=== PATIENT | male | born 1955 | race Hispanic/Latino ===

== ENCOUNTER 2019-04-27 15:05 | Inpatient (IN) | payer MEDICARE ==
[2019-04-27] MEDS ORDERED: DILAUDID IV PRN (15:16)
--- NOTE | 2019-04-27 17:18 | Vascular Lab Report ---
DUPLEX DOPPLER LOWER EXTREMITY VEINS, LEFT INDICATION / CLINICAL INFORMATION: lt.leg pain/redness; r/o dvt. TECHNIQUE: Duplex doppler imaging was performed through the veins of the left lower extremity using venous compr ession and other maneuvers. COMPARISON: None available. FINDINGS: COMMON FEMORAL VEIN: Negative. FEMORAL VEIN: Negative. POPLITEAL VEIN: Negative. CALF VEINS: Negative. ADDITIONAL FINDINGS: Small mildly complex fluid collection in the left popliteal fossa. IMPRESSION: 1. No sonographic evidence for DVT in the left lower extremity. 2. Small, complex popliteal fossa cyst versus collection. Findings could represent small hematoma. Signer Name: Cami Scott MD Signed: 04/27/2019 5:13 PM Workstation Name: [id number]
[2019-04-27 18:24] LABS: Basophils % (Auto) 0.7 % (0.0-1.8); Eosinophils # (Auto) 0.7 K/mm3 (0.0-0.4); Eosinophils % (Auto) 10.7 % (0.0-4.3); Hematocrit 40.5 % (35.5-45.6); Hemoglobin 12.8 gm/dl (11.8-15.2); Lymphocytes # (Auto) 1.4 K/mm3 (1.2-5.4); Lymphocytes % (Auto) 21.3 % (13.4-35.0); Mean Corpuscular HGB Conc 32 % (32-34); Mean Corpuscular Volume 80 fl (84-94); Monocytes # (Auto) 0.5 K/mm3 (0.0-0.8); Monocytes % (Auto) 8.5 % (0.0-7.3); Platelet Count 181 K/mm3 (140-440); Red Blood Count 5.08 M/mm3 (3.65-5.03); Red Cell Distribution Width 17.8 % (13.2-15.2)
[2019-04-27 18:49] LABS: Alanine Aminotransferase 9 units/L (7-56); Albumin 4.1 g/dL (3.9-5); BUN/Creatinine Ratio 20; Blood Urea Nitrogen 14 mg/dL (9-20); Calcium 9.2 mg/dL (8.4-10.2); Hemolysis Index 4
[2019-04-27 18:59] LABS: Erythrocyte Sedimentation Rate 4 mm/Hr (0-20)
--- NOTE | 2019-04-27 19:49 | History and Physical Report ---
History of Present Illness Date of examination: 04/27/19 Date of admission: 04/27/19 15:52 Chief complaint: L knee redness 3 days History of present illness: Patient admitted as direct admit from Dr Meyer office for redness of L knee 3 days.He is status post L TKA. post op was doing wekk.Dr Mata concerned about cellulitis odf L knee.He wanted IV Zosyn and IV Vancomycin No fever or chills. Past History Past Medical History: diabetes, hypertension, hyperlipidemia Past Surgical History: total knee replacement Social history: lives with family, full code Family history: hypertension Medications and Allergies Allergies Allergy/AdvReac Type Severity Reaction Status Date / Time No Known Allergies Allergy Unverified 04/27/19 15:08 Home Medications Medication Instructions Recorded Confirmed Last Taken Type Aspirin [Aspirin BABY CHEW TAB] 81 mg PO QPM 04/27/19 04/27/19 04/26/19 20:00 History Carvedilol [Coreg] 6.25 mg PO DAILY 04/27/19 04/27/19 04/27/19 10:00 History Citalopram [celeXA] 40 mg PO QDAY 04/27/19 04/27/19 04/27/19 History Clopidogrel [Plavix] 75 mg PO DAILY 04/27/19 04/27/19 04/27/19 10:00 History Empagliflozin/Metformin HCl 1,000 mg PO BID 04/27/19 04/27/19 04/27/19 09:00 History [Synjardy 12.5-1,000 mg Tablet] Insulin Glargine [Lantus VIAL] 28 units SQ QPM 04/27/19 04/27/19 04/26/19 20:00 History Lisinopril [Zestril] 5 mg PO QPM 04/27/19 04/27/19 04/26/19 20:00 History Meclizine [Antivert] 25 mg PO PRN PRN 04/27/19 04/27/19 Unknown History Multivitamin [Multiple Vitamins] 1 each PO DAILY 04/27/19 04/27/19 04/27/19 10:00 History [place]-3/Dha/Epa/Fish Oil [Fish Oil 1,200 mg PO BID 04/27/19 04/27/19 04/27/19 10:00 History 1,200 mg Softgel] Pantoprazole [Protonix TAB] 40 mg PO DAILY 04/27/19 04/27/19 04/27/19 10:00 History Pregabalin [Lyrica] 100 mg PO BID 04/27/19 04/27/19 04/27/19 10:00 History Repaglinide 2 mg PO QHS 04/27/19 04/27/19 04/26/19 17:00 History Rosuvastatin Calcium [Crestor] 40 mg PO HS 04/27/19 04/27/19 04/26/19 21:00 History oxyCODONE /ACETAMINOPHEN [Percocet 5 mg PO Q6HR PRN 04/27/19 04/27/19 04/27/19 09:00 History 5/325 mg] Active Meds: Active Medications Hydromorphone HCl (Dilaudid) 0.5 mg IV Q3H PRN PRN Reason: Pain , Severe (7-10) Sodium Chloride (Nacl 0.9% 1000 Ml) 1,000 mls @ 75 mls/hr IV DIRECT ANA Review of Systems All systems: negative Exam - Constitutional Vitals: Temp Pulse Resp BP Pulse Ox 98.0 F 85 19 131/68 95 04/27/19 19:25 04/27/19 19:25 04/27/19 19:25 04/27/19 19:25 04/27/19 19:25 General appearance: Present: no acute distress, well-nourished - EENT Eyes: Present: PERRL ENT: hearing intact, clear oral mucosa - Neck Neck: Present: supple, normal ROM - Respiratory Respiratory effort: normal Respiratory: bilateral: CTA - Cardiovascular Heart rate: 78 Rhythm: regular Heart Sounds: Present: S1 & S2. Absent: rub, click - Extremities Extremities: no ischemia, pulses intact, pulses symmetrical, No edema Extremity abnormal: erythema (L knee) Peripheral Pulses: within normal limits - Abdominal General gastrointestinal: Present: soft, non-tender, non-distended, normal bowel sounds Male genitourinary: Present: normal - Rectal Rectal Exam: deferred - Integumentary Integumentary: Present: clear, warm, dry - Musculoskeletal Musculoskeletal: gait normal, strength equal bilaterally - Psychiatric Psychiatric: appropriate mood/affect, intact judgment & insight - Neurologic Neurologic: CNII-XII intact, moves all extremities - Allied Health Allied health notes reviewed: nursing, case management Results - Labs CBC & Chem 7: 04/28/19 05:25 04/28/19 05:25 Labs: Laboratory Last Values WBC 6.5 K/mm3 (4.5-11.0) 04/27/19 17:55 RBC 5.08 M/mm3 (3.65-5.03) H 04/27/19 17:55 Hgb 12.8 gm/dl (11.8-15.2) 04/27/19 17:55 Hct 40.5 % (35.5-45.6) 04/27/19 17:55 MCV 80 fl (84-94) L 04/27/19 17:55 MCH 25 pg (28-32) L 04/27/19 17:55 MCHC 32 % (32-34) 04/27/19 17:55 RDW 17.8 % (13.2-15.2) H 04/27/19 17:55 Plt Count 181 K/mm3 (140-440) 04/27/19 17:55 Lymph % (Auto) 21.3 % (13.4-35.0) 04/27/19 17:55 [place] % (Auto) 8.5 % (0.0-7.3) H 04/27/19 17:55 Eos % (Auto) 10.7 % (0.0-4.3) H 04/27/19 17:55 Baso % (Auto) 0.7 % (0.0-1.8) 04/27/19 17:55 Lymph # 1.4 K/mm3 (1.2-5.4) 04/27/19 17:55 [place] # 0.5 K/mm3 (0.0-0.8) 04/27/19 17:55 Eos # 0.7 K/mm3 (0.0-0.4) H 04/27/19 17:55 Baso # 0.0 K/mm3 (0.0-0.1) 04/27/19 17:55 Seg Neutrophils % 58.8 % (40.0-70.0) 04/27/19 17:55 Seg Neutrophils # 3.8 K/mm3 (1.8-7.7) 04/27/19 17:55 ESR 4 mm/Hr (0-20) 04/27/19 17:55 Sodium 139 mmol/L (137-145) 04/27/19 17:55 Potassium 4.4 mmol/L (3.6-5.0) 04/27/19 17:55 Chloride 99.9 mmol/L (98-107) 04/27/19 17:55 Carbon Dioxide 26 mmol/L (22-30) 04/27/19 17:55 18 mmol/L 04/27/19 17:55 BUN 14 mg/dL (9-20) 04/27/19 17:55 0.7 mg/dL (0.8-1.5) L 04/27/19 17:55 Estimated GFR > 60 ml/min 04/27/19 17:55 20 % 04/27/19 17:55 Glucose 110 mg/dL (75-100) H 04/27/19 17:55 POC Glucose 118 (70-105) H 04/27/19 17:31 Calcium 9.2 mg/dL (8.4-10.2) 04/27/19 17:55 0.40 mg/dL (0.1-1.2) 04/27/19 17:55 AST 11 units/L (5-40) 04/27/19 17:55 ALT 9 units/L (7-56) 04/27/19 17:55 85 units/L (35-129) 04/27/19 17:55 0.60 mg/dL (0.00-1.30) 04/27/19 17:55 6.8 g/dL (6.3-8.2) 04/27/19 17:55 4.1 g/dL (3.9-5) 04/27/19 17:55 1.5 % 04/27/19 17:55 TSH 1.770 mlU/mL (0.270-4.200) 04/27/19 17:55 Short CBC 04/27/19 04/28/19 Range/Units 17:55 05:25 WBC 6.5 5.4 (4.5-11.0) K/mm3 Hgb 12.8 12.0 (11.8-15.2) gm/dl Hct 40.5 37.2 (35.5-45.6) % Plt Count 181 158 (140-440) K/mm3 BMP 04/27/19 04/28/19 17:55 05:25 Sodium 139 139 Potassium 4.4 4.4 Chloride 99.9 101.9 Carbon Dioxide 26 26 BUN 14 14 Creatinine 0.7 L 0.7 L Glucose 110 H 112 H Calcium 9.2 8.6 Liver Function 04/27/19 04/28/19 Range/Units 17:55 05:25 Total Bilirubin 0.40 0.50 (0.1-1.2) mg/dL AST 11 11 (5-40) units/L ALT 9 9 (7-56) units/L Alkaline Phosphatase 85 71 (35-129) units/L Albumin 4.1 3.5 L (3.9-5) g/dL Assessment and Plan Advance Directives: Yes (Full code) VTE prophylaxis?: Chemical Plan of care discussed with patient/family: Yes - Patient Problems (1) Cellulitis of knee, left Current Visit: Yes Status: Acute Plan to address problem: IV zosyn and IV Vancomycin as per Dr Wilfredo Lopez consulted (2) HTN (hypertension) Current Visit: Yes Status: Chronic Qualifiers: Hypertension type: essential hypertension Qualified Code(s): I10 - Essential (primary) hypertension Plan to address problem: Cont antihypertensives (3) T2DM (type 2 diabetes mellitus) Current Visit: Yes Status: Chronic Qualifiers: Diabetes mellitus terminal superintendent insulin use: without fpc use Plan to address problem: Cont Invokana and coverage (4) DVT prophylaxis Current Visit: Yes Status: Acute Plan to address problem: On Lovenox and GI prophylaxis
[2019-04-27] MEDS ORDERED: SODIUM CHLORIDE FLUSH SYRINGE 10 ML IV PRN (19:50)
[2019-04-27] MEDS ORDERED: TYLENOL PO PRN (19:50)
[2019-04-27] MEDS ORDERED: ZOFRAN IV PRN (19:50)
[2019-04-27] MEDS ORDERED: VANCOMYCIN PHARMACY TO DOSE IV SCH (20:00)
[2019-04-27] MEDS ORDERED: ZOSYN/NS 4.5GM/100ML 4.5 GM/100 ML VIAL IV SCH (20:30)
[2019-04-27] MEDS: PEPCID PO SCH (21:00)
[2019-04-27] MEDS: SODIUM CHLORIDE FLUSH SYRINGE 10 ML IV SCH (21:01)
[2019-04-27] MEDS: ZOSYN/NS 4.5GM/100ML 4.5 GM/100 ML VIAL IV SCH (21:47)
[2019-04-27] MEDS ORDERED: BABY ASPIRIN PO SCH (22:00)
[2019-04-27] MEDS ORDERED: VANCOMYCIN/NS 1 GM/250 ML 1 GM/250 ML BAG IV ONE (23:00)
[2019-04-27] MEDS: LANTUS SUB-Q SCH (23:02)
[2019-04-27] MEDS: PREGABALIN 25 MG, PREGABALIN 75 MG PO SCH (23:03)
[2019-04-27] MEDS: FISH OIL PO SCH (23:04)
[2019-04-27] MEDS: ZESTRIL PO SCH (23:07)
[2019-04-27] MEDS ORDERED: VANCOMYCIN 2,000 MG in NACL 0.9% 500 ML 500 ML IV ONE (23:15)
[2019-04-28 05:40] LABS: Basophils % (Auto) 0.8 % (0.0-1.8); Eosinophils # (Auto) 0.7 K/mm3 (0.0-0.4); Eosinophils % (Auto) 12.9 % (0.0-4.3); Hematocrit 37.2 % (35.5-45.6); Lymphocytes # (Auto) 1.5 K/mm3 (1.2-5.4); Lymphocytes % (Auto) 27.7 % (13.4-35.0); Mean Corpuscular HGB Conc 32 % (32-34); Mean Corpuscular Volume 80 fl (84-94); Monocytes # (Auto) 0.5 K/mm3 (0.0-0.8); Monocytes % (Auto) 9.6 % (0.0-7.3); Platelet Count 158 K/mm3 (140-440); Red Blood Count 4.65 M/mm3 (3.65-5.03); Red Cell Distribution Width 17.7 % (13.2-15.2)
[2019-04-28] MEDS: ZOSYN/NS 4.5GM/100ML 4.5 GM/100 ML VIAL IV SCH ×2 (05:40→14:47)
[2019-04-28 06:06] LABS: Alanine Aminotransferase 9 units/L (7-56); Albumin 3.5 g/dL (3.9-5); BUN/Creatinine Ratio 20; Blood Urea Nitrogen 14 mg/dL (9-20); Calcium 8.6 mg/dL (8.4-10.2); Hemolysis Index 6
[2019-04-28] MEDS ORDERED: PERCOCET 5/325 PO PRN (07:15)
[2019-04-28] MEDS ORDERED: ANTIVERT PO PRN (07:15)
--- NOTE | 2019-04-28 08:36 | Progress Note ---
Assessment and Plan Assessment and plan: Patient is a 64 yo man with a history of hypertension, IDDM type 2, Depression, 2 greenberg three years ago (placed on plavix with ASA), Vertigo, GERD and dyslipidemia who was a direct admit from Dr Meyer [facility] office for Left knee redness x 3 days. He is status post Left TKA on March 19, 2019 at [facility]. Patient was doing well post op. Dr Meyer was concerned about cellulitis the Left knee. He wanted IV Zosyn and IV Vancomycin. -Left knee cellulitis: treat with IV abx, consulted ID, wound culture done with Dr. Villalobos -s/p Left TKA: Ortho is following, -HTN (hypertension): Cont antihypertensives -T2DM (type 2 diabetes mellitus): Cont Invokana and coverage -DVT prophylaxis; per Dr. Villalobos, ok to stop sq lovenox and continue ASA and plavix History Interval history: Patient was seen and examined. Follow-up on current diagnosis of left knee cellulitis. No overnight events reported to me. Patient denies any chest pain, shortness breath, nausea/vomiting or severe headaches. Imaging, nursing note, chart, labs and old chart reviewed. Discussed with patient. Hospitalist Physical - Physical exam Narrative exam: Gen: WDWN, NAD, Awake, Alert, Orientated x 3 HEENT: NCAT, EOMI, PERRL, OP Clear Neck: supple, no adenopathy, no thyromegaly, no JVD CVS/Heart: RRR, normal S1S2, pulses present bilaterally Chest/Lungs: CTA B, Symmetrical chest expansion, good air entry bilaterally GI/Abdomen: soft, NTND, good bowel sounds, no guarding or rebound /Bladder: no suprapubic tenderness, no CVA or paraspinal tenderness Extermity/Skin: left knee s/p surgery with red, warmth, tender erythematous MSK: FROM x 4 Neuro: CN 2-12 grossly intact, no new focal deficits Psych: calm - Constitutional Vitals: Temp Pulse Resp BP Pulse Ox 98.1 F 76 20 148/69 96 04/28/19 07:21 04/28/19 07:21 04/28/19 07:21 04/28/19 07:21 04/28/19 07:21 General appearance: Present: no acute distress, well-nourished Results - Labs CBC & Chem 7: 04/28/19 05:25 04/28/19 05:25 Labs: Laboratory Last Values WBC 5.4 K/mm3 (4.5-11.0) 04/28/19 05:25 RBC 4.65 M/mm3 (3.65-5.03) 04/28/19 05:25 Hgb 12.0 gm/dl (11.8-15.2) 04/28/19 05:25 Hct 37.2 % (35.5-45.6) 04/28/19 05:25 MCV 80 fl (84-94) L 04/28/19 05:25 MCH 26 pg (28-32) L 04/28/19 05:25 MCHC 32 % (32-34) 04/28/19 05:25 RDW 17.7 % (13.2-15.2) H 04/28/19 05:25 Plt Count 158 K/mm3 (140-440) 04/28/19 05:25 Lymph % (Auto) 27.7 % (13.4-35.0) 04/28/19 05:25 [place] % (Auto) 9.6 % (0.0-7.3) H 04/28/19 05:25 Eos % (Auto) 12.9 % (0.0-4.3) H 04/28/19 05:25 Baso % (Auto) 0.8 % (0.0-1.8) 04/28/19 05:25 Lymph # 1.5 K/mm3 (1.2-5.4) 04/28/19 05:25 [place] # 0.5 K/mm3 (0.0-0.8) 04/28/19 05:25 Eos # 0.7 K/mm3 (0.0-0.4) H 04/28/19 05:25 Baso # 0.0 K/mm3 (0.0-0.1) 04/28/19 05:25 Seg Neutrophils % 49.0 % (40.0-70.0) 04/28/19 05:25 Seg Neutrophils # 2.6 K/mm3 (1.8-7.7) 04/28/19 05:25 ESR 4 mm/Hr (0-20) 04/27/19 17:55 Sodium 139 mmol/L (137-145) 04/28/19 05:25 Potassium 4.4 mmol/L (3.6-5.0) 04/28/19 05:25 Chloride 101.9 mmol/L (98-107) 04/28/19 05:25 Carbon Dioxide 26 mmol/L (22-30) 04/28/19 05:25 16 mmol/L 04/28/19 05:25 BUN 14 mg/dL (9-20) 04/28/19 05:25 0.7 mg/dL (0.8-1.5) L 04/28/19 05:25 Estimated GFR > 60 ml/min 04/28/19 05:25 20 % 04/28/19 05:25 Glucose 112 mg/dL (75-100) H 04/28/19 05:25 POC Glucose 101 (70-105) 04/28/19 07:31 6.3 % (4-6) H 04/27/19 Unknown Calcium 8.6 mg/dL (8.4-10.2) 04/28/19 05:25 0.50 mg/dL (0.1-1.2) 04/28/19 05:25 AST 11 units/L (5-40) 04/28/19 05:25 ALT 9 units/L (7-56) 04/28/19 05:25 71 units/L (35-129) 04/28/19 05:25 0.60 mg/dL (0.00-1.30) 04/27/19 17:55 6.1 g/dL (6.3-8.2) L 04/28/19 05:25 3.5 g/dL (3.9-5) L 04/28/19 05:25 1.3 % 04/28/19 05:25 TSH 1.770 mlU/mL (0.270-4.200) 04/27/19 17:55 Active Medications - Current Medications Current Medications: Generic Name Dose Route Start Last Admin Trade Name Freq PRN Reason Stop Dose Admin Acetaminophen 650 mg 04/27/19 19:50 Tylenol PO Q4H PRN Pain MILD(1-3)/Fever >100.5/QU[place]A Aspirin 81 mg 04/28/19 18:00 Baby Aspirin PO QPM ANA Atorvastatin Calcium 80 mg 04/27/19 22:00 04/27/19 23:06 Lipitor PO 80 mg QHS [facility] Administration Carvedilol 6.25 mg 04/28/19 10:00 Coreg PO DAILY [facility] Citalopram Hydrobromide 40 mg 04/28/19 10:00 Celexa PO QDAY [facility] Clopidogrel Bisulfate 75 mg 04/28/19 10:00 Plavix PO QDAY [facility] Enoxaparin Sodium 40 mg 04/28/19 22:00 Lovenox SUB-Q QDAY@2200 [facility] Famotidine 20 mg 04/27/19 22:00 04/27/19 21:00 Pepcid PO 20 mg BID ANA Administration Fish Oil 1,200 mg 04/27/19 22:00 04/27/19 23:04 Fish Oil PO 1,200 mg BID [facility] Administration Hydromorphone HCl 0.5 mg 04/27/19 15:16 04/27/19 23:08 Dilaudid IV 0.5 mg Q3H PRN Administration Pain , Severe (7-10) Sodium Chloride 1,000 mls @ 75 mls/hr 04/27/19 16:00 Nacl 0.9% 1000 Ml IV DIRECT [facility] Piperacillin Sod/Tazobactam Sod 4.5 gm in 100 mls @ 200 mls/hr 04/27/19 22:00 04/28/19 05:40 Zosyn/Ns 4.5gm/100ml IV 200 mls/hr Q8HR [facility] Administration Protocol Vancomycin HCl 1,750 mg/ 535 mls @ 333.333 mls/hr 04/28/19 12:00 Sodium Chloride IV Q12H [facility] Insulin Glargine 28 units 04/27/19 22:00 04/27/19 23:02 Lantus SUB-Q Not Given QHS [facility] Lisinopril 5 mg 04/27/19 22:00 04/27/19 23:07 Zestril PO 5 mg QHS [facility] Administration Meclizine HCl 25 mg 04/28/19 07:15 Antivert PO PRN PRN dizziness Miscellaneous Medication 1,000 mg 04/28/19 10:00 Empagliflozin/Metformin Hcl [Synjardy 12.5-1,000 Mg Tablet] PO BID [facility] Multivitamins/Minerals 1 each 04/28/19 10:00 Theragran-M Tab PO QDAY ANA Ondansetron HCl 4 mg 04/27/19 19:50 Zofran IV Q8H PRN Nausea And Vomiting Oxycodone/Acetaminophen 1 tab 04/27/19 19:50 Percocet 5/325 PO Q6H PRN Pain, Moderate (4-6) Pantoprazole Sodium 40 mg 04/28/19 10:00 Protonix PO QDAY ANA Pregabalin 25 mg/ Pregabalin 100 mg 04/27/19 22:00 04/27/19 23:03 75 mg PO 100 mg BID ANA Administration Repaglinide 2 mg 04/28/19 17:00 Prandin PO QHS ANA Sodium Chloride 10 ml 04/27/19 22:00 04/27/19 21:01 Sodium Chloride Flush Syringe 10 Ml IV 10 ml BID ANA Administration Sodium Chloride 10 ml 04/27/19 19:50 Sodium Chloride Flush Syringe 10 Ml IV PRN PRN LINE FLUSH
[2019-04-28] MEDS: PEPCID PO SCH ×2 (09:11→22:25)
[2019-04-28] MEDS: PLAVIX PO SCH (09:11)
[2019-04-28] MEDS: PROTONIX PO SCH (09:12)
[2019-04-28] MEDS: FISH OIL PO SCH ×4 (09:12→22:25)
[2019-04-28] MEDS: celeXA PO SCH (09:12)
[2019-04-28] MEDS: COREG PO SCH (09:12)
[2019-04-28] MEDS: THERAGRAN-M Tab PO SCH (09:12)
[2019-04-28] MEDS: PERCOCET 5/325 PO PRN ×2 (09:29→22:26)
[2019-04-28] MEDS: SODIUM CHLORIDE FLUSH SYRINGE 10 ML IV SCH (09:35)
[2019-04-28] MEDS ORDERED: NON-FORMULARY (Pregabalin [Lyrica] 100 MG) PO SCH (10:00)
[2019-04-28] MEDS ORDERED: PLAVIX PO SCH (10:00)
[2019-04-28] MEDS ORDERED: FISH OIL PO SCH (10:00)
[2019-04-28] MEDS ORDERED: METFORMIN HCL PO SCH (10:00)
[2019-04-28] MEDS ORDERED: NON-FORMULARY (Multivitamin [Multiple Vitamins] 1 EACH) PO SCH (10:00)
[2019-04-28] MEDS ORDERED: EPA PO SCH (10:00)
[2019-04-28] MEDS ORDERED: PROTONIX PO SCH (10:00)
[2019-04-28] MEDS ORDERED: OMEGA PO SCH (10:00)
[2019-04-28] MEDS ORDERED: COREG PO SCH (10:00)
[2019-04-28] MEDS ORDERED: celeXA PO SCH (10:00)
[2019-04-28] MEDS ORDERED: DHA PO SCH (10:00)
[2019-04-28] MEDS ORDERED: EMPAGLIFLOZIN PO SCH (10:00)
--- NOTE | 2019-04-28 11:52 | Progress Note ---
Subjective Date of service: 04/28/19 Interval history: patient lying on bed comfortably. Redness a lot better. minimal redness in proximal medial tibia remaning with mild tenderness. Recomm- Ice pacs ELEVATION esr crp not resulted yet Cx from knee joint awaited. COntinue IV ABX. ID consult Objective Vital signs: Vital Signs - 12hr 04/28/19 04/28/19 04/28/19 04:09 04:11 07:21 Temperature 97.9 F 98.1 F Pulse Rate 78 76 Respiratory 18 18 20 Rate Blood Pressure 120/76 148/69 O2 Sat by Pulse 96 96 Oximetry 04/28/19 04/28/19 10:29 11:06 Temperature 97.0 F L Pulse Rate 76 Respiratory 18 18 Rate Blood Pressure 145/79 O2 Sat by Pulse 94 Oximetry - Labs CBC & BMP: 04/28/19 05:25 04/28/19 05:25 Labs: Abnormal lab results 04/27/19 04/27/19 04/27/19 Range/Units 17:31 17:55 17:55 RBC 5.08 H (3.65-5.03) M/mm3 MCV 80 L (84-94) fl MCH 25 L (28-32) pg RDW 17.8 H (13.2-15.2) % [place] % (Auto) 8.5 H (0.0-7.3) % Eos % (Auto) 10.7 H (0.0-4.3) % Eos # 0.7 H (0.0-0.4) K/mm3 Creatinine 0.7 L (0.8-1.5) mg/dL Glucose 110 H (75-100) mg/dL POC Glucose 118 H (70-105) Hemoglobin A1c (4-6) % Total Protein (6.3-8.2) g/dL Albumin (3.9-5) g/dL 04/27/19 04/28/19 04/28/19 Range/Units Unknown 05:25 05:25 RBC (3.65-5.03) M/mm3 MCV 80 L (84-94) fl MCH 26 L (28-32) pg RDW 17.7 H (13.2-15.2) % [place] % (Auto) 9.6 H (0.0-7.3) % Eos % (Auto) 12.9 H (0.0-4.3) % Eos # 0.7 H (0.0-0.4) K/mm3 Creatinine 0.7 L (0.8-1.5) mg/dL Glucose 112 H (75-100) mg/dL POC Glucose (70-105) Hemoglobin A1c 6.3 H (4-6) % Total Protein 6.1 L (6.3-8.2) g/dL Albumin 3.5 L (3.9-5) g/dL 04/28/19 Range/Units 11:16 RBC (3.65-5.03) M/mm3 MCV (84-94) fl MCH (28-32) pg RDW (13.2-15.2) % [place] % (Auto) (0.0-7.3) % Eos % (Auto) (0.0-4.3) % Eos # (0.0-0.4) K/mm3 Creatinine (0.8-1.5) mg/dL Glucose (75-100) mg/dL POC Glucose 113 H (70-105) Hemoglobin A1c (4-6) % Total Protein (6.3-8.2) g/dL Albumin (3.9-5) g/dL
[2019-04-28] MEDS: VANCOMYCIN 1,750 MG in NACL 0.9% 500 ML 500 ML IV SCH ×2 (12:17→23:46)
[2019-04-28] MEDS: PREGABALIN 25 MG, PREGABALIN 75 MG PO SCH ×2 (12:17→22:18)
--- NOTE | 2019-04-28 14:38 | Consultation ---
History of Present Illness - Reason for Consult Consult date: 04/28/19 abx recommendation for left TKA and cellulitis Requesting physician: CASSIE JENKINS - History of Present Illness The patient is a 64-year-old male with diabetes mellitus, hypertension, prior CVA, gastroesophageal reflux disease was admitted to the hospital yesterday from orthopedic clinic due to complaints of left knee redness. The patient initially underwent a left TKA on 03/19/2019. Postoperatively, he was doing well with good healing of the wound. He has been following up with physical therapy and increasing his exertion. 2 days ago, he noticed a mild redness close to the distal area of his incision, this worsened yesterday and hence he presented to the orthopedic clinic and was admitted for IV antibiotics. He states that he also underwent an arthrocentesis in the orthopedic clinic. Twice he denies any other systemic complaints. Review of Systems: General: no fevers,chills or rigors HEENT: no new visual disturbance Respiratory: No cough, sputum, hemoptysis or shortness of breath Cardiovascular: No chest pain, syncope Gastrointestinal: No nausea, vomiting or diarrhea Genitourinary: No dysuria or hematuria Musculoskeletal: No new or worsening neck pain or back pain Neurologic: No headaches, seizures Hematologic: No easy bruising or bleeding Endocrine: No night sweats or acute weight loss Skin: negative for rash, jaundice Psychiatric: No suicidal or homicidal ideation Past History Past Medical History: diabetes, hypertension, hyperlipidemia Past Surgical History: total knee replacement Social history: lives with family, full code Family history: hypertension Medications and Allergies Allergies Allergy/AdvReac Type Severity Reaction Status Date / Time No Known Allergies Allergy Unverified 04/27/19 15:08 Home Medications Medication Instructions Recorded Confirmed Last Taken Type Aspirin [Aspirin BABY CHEW TAB] 81 mg PO QPM 04/27/19 04/27/19 04/26/19 20:00 History Carvedilol [Coreg] 6.25 mg PO DAILY 04/27/19 04/27/19 04/27/19 10:00 History Citalopram [celeXA] 40 mg PO QDAY 04/27/19 04/27/19 04/27/19 History Clopidogrel [Plavix] 75 mg PO DAILY 04/27/19 04/27/19 04/27/19 10:00 History Empagliflozin/Metformin HCl 1,000 mg PO BID 04/27/19 04/27/19 04/27/19 09:00 History [Synjardy 12.5-1,000 mg Tablet] Insulin Glargine [Lantus VIAL] 28 units SQ QPM 04/27/19 04/27/19 04/26/19 20:00 History Lisinopril [Zestril] 5 mg PO QPM 04/27/19 04/27/19 04/26/19 20:00 History Meclizine [Antivert] 25 mg PO PRN PRN 04/27/19 04/27/19 Unknown History Multivitamin [Multiple Vitamins] 1 each PO DAILY 04/27/19 04/27/19 04/27/19 10:00 History Custer-3/Dha/Epa/Fish Oil [Fish Oil 1,200 mg PO BID 04/27/19 04/27/19 04/27/19 10:00 History 1,200 mg Softgel] Pantoprazole [Protonix TAB] 40 mg PO DAILY 04/27/19 04/27/19 04/27/19 10:00 History Pregabalin [Lyrica] 100 mg PO BID 04/27/19 04/27/19 04/27/19 10:00 History Repaglinide 2 mg PO QHS 04/27/19 04/27/19 04/26/19 17:00 History Rosuvastatin Calcium [Crestor] 40 mg PO HS 04/27/19 04/27/19 04/26/19 21:00 History oxyCODONE /ACETAMINOPHEN [Percocet 5 mg PO Q6HR PRN 04/27/19 04/27/19 04/27/19 09:00 History 5/325 mg] Active Meds: Active Medications Acetaminophen (Tylenol) 650 mg PO Q4H PRN PRN Reason: Pain MILD(1-3)/Fever >100.5/QUINTANILLA Aspirin (Baby Aspirin) 81 mg PO QPM [facility] Atorvastatin Calcium (Lipitor) 80 mg PO QHS [facility] Last Admin: 04/27/19 23:06 Dose: 80 mg Documented by: Carvedilol (Coreg) 6.25 mg PO DAILY [facility] Last Admin: 04/28/19 09:12 Dose: 6.25 mg Documented by: Citalopram Hydrobromide (Celexa) 40 mg PO QDAY [facility] Last Admin: 04/28/19 09:12 Dose: 40 mg Documented by: Clopidogrel Bisulfate (Plavix) 75 mg PO QDAY [facility] Last Admin: 04/28/19 09:11 Dose: 75 mg Documented by: Famotidine (Pepcid) 20 mg PO BID [facility] Last Admin: 04/28/19 09:11 Dose: 20 mg Documented by: Fish Oil (Fish Oil) 1,000 mg PO BID [facility] Last Admin: 04/28/19 10:25 Dose: Not Given Documented by: Hydromorphone HCl (Dilaudid) 0.5 mg IV Q3H PRN PRN Reason: Pain , Severe (7-10) Last Admin: 04/27/19 23:08 Dose: 0.5 mg Documented by: Sodium Chloride (Nacl 0.9% 1000 Ml) 1,000 mls @ 75 mls/hr IV DIRECT [facility] Piperacillin Sod/Tazobactam Sod (Zosyn/Ns 4.5gm/100ml) 4.5 gm in 100 mls @ 200 mls/hr IV Q8HR [facility]; Protocol Last Admin: 04/28/19 05:40 Dose: 200 mls/hr Documented by: Vancomycin HCl 1,750 mg/ (Sodium Chloride) 535 mls @ 333.333 mls/hr IV Q12H [facility] Last Admin: 04/28/19 12:17 Dose: 333.333 mls/hr Documented by: Insulin Glargine (Lantus) 28 units SUB-Q QHS [facility] Last Admin: 04/27/19 23:02 Dose: Not Given Documented by: Lisinopril (Zestril) 5 mg PO QHS [facility] Last Admin: 04/27/19 23:07 Dose: 5 mg Documented by: Meclizine HCl (Antivert) 25 mg PO PRN PRN PRN Reason: dizziness Miscellaneous Medication (Empagliflozin/Metformin Hcl [Synjardy 12.5-1,000 Mg Tablet]) 1,000 mg PO BID [facility] Multivitamins/Minerals (Theragran-M Tab) 1 each PO QDAY [facility] Last Admin: 04/28/19 09:12 Dose: 1 each Documented by: Ondansetron HCl (Zofran) 4 mg IV Q8H PRN PRN Reason: Nausea And Vomiting Oxycodone/Acetaminophen (Percocet 5/325) 1 tab PO Q6H PRN PRN Reason: Pain, Moderate (4-6) Last Admin: 04/28/19 09:29 Dose: 1 tab Documented by: Pantoprazole Sodium (Protonix) 40 mg PO QDAY [facility] Last Admin: 04/28/19 09:12 Dose: 40 mg Documented by: Pregabalin 25 mg/ Pregabalin (75 mg) 100 mg PO BID [facility] Last Admin: 04/28/19 12:17 Dose: 75 mg Documented by: Repaglinide (Prandin) 2 mg PO QHS [facility] Sodium Chloride (Sodium Chloride Flush Syringe 10 Ml) 10 ml IV BID [facility] Last Admin: 04/28/19 09:35 Dose: 10 ml Documented by: Sodium Chloride (Sodium Chloride Flush Syringe 10 Ml) 10 ml IV PRN PRN PRN Reason: LINE FLUSH Physical Examination - Physical Exam Narrative exam: Physical Exam: Constitutional: Alert, cooperative. No acute distress Head, Ears, Nose: Normocephalic, atraumatic. External ears, nose normal Eyes: Conjunctivae/corneas clear. No icterus. No ptosis. Neck: Supple, no meningeal signs Oral: dentition fair, no thrush Cardiovascular: S1, S2 normal. Respiratory: Good air entry, clear to auscultation bilaterally GI: Soft, non-tender; bowel sounds normal. No peritoneal signs Musculoskeletal: The surgical incision is clean, dry and intact with no open areas or drainage. Area of erythema and tenderness medial to the distal part of the knee incision is present, no fluctuation, no open area or drainage. No pedal edema, no cyanosis. Skin: No rash or abscess Hem/Lymphatic: No palpable cervical or supraclavicular nodes. No lymphangitis Psych: Mood ok. Affect normal Neurological: Awake, alert, oriented. No gross abnormality - Constitutional Vitals: Vital Signs Temp Pulse Resp BP Pulse Ox 97.0 F L 76 18 145/79 94 04/28/19 11:06 04/28/19 11:06 04/28/19 11:06 04/28/19 11:06 04/28/19 11:06 Temperature -Last 24 Hours Temperature 97.0 F Temperature 98.1 F Temperature 97.9 F Temperature 98.3 F Temperature 98.1 F Temperature 98.0 F Temperature 98.2 F Results - Labs CBC & Chem 7: 04/28/19 05:25 04/28/19 05:25 Labs: Abnormal lab results 04/27/19 04/27/19 04/27/19 Range/Units 17:31 17:55 17:55 RBC 5.08 H (3.65-5.03) M/mm3 MCV 80 L (84-94) fl MCH 25 L (28-32) pg RDW 17.8 H (13.2-15.2) % [place] % (Auto) 8.5 H (0.0-7.3) % Eos % (Auto) 10.7 H (0.0-4.3) % Eos # 0.7 H (0.0-0.4) K/mm3 Creatinine 0.7 L (0.8-1.5) mg/dL Glucose 110 H (75-100) mg/dL POC Glucose 118 H (70-105) Hemoglobin A1c (4-6) % Total Protein (6.3-8.2) g/dL Albumin (3.9-5) g/dL 04/27/19 04/28/19 04/28/19 Range/Units Unknown 05:25 05:25 RBC (3.65-5.03) M/mm3 MCV 80 L (84-94) fl MCH 26 L (28-32) pg RDW 17.7 H (13.2-15.2) % [place] % (Auto) 9.6 H (0.0-7.3) % Eos % (Auto) 12.9 H (0.0-4.3) % Eos # 0.7 H (0.0-0.4) K/mm3 Creatinine 0.7 L (0.8-1.5) mg/dL Glucose 112 H (75-100) mg/dL POC Glucose (70-105) Hemoglobin A1c 6.3 H (4-6) % Total Protein 6.1 L (6.3-8.2) g/dL Albumin 3.5 L (3.9-5) g/dL 04/28/19 Range/Units 11:16 RBC (3.65-5.03) M/mm3 MCV (84-94) fl MCH (28-32) pg RDW (13.2-15.2) % [place] % (Auto) (0.0-7.3) % Eos % (Auto) (0.0-4.3) % Eos # (0.0-0.4) K/mm3 Creatinine (0.8-1.5) mg/dL Glucose (75-100) mg/dL POC Glucose 113 H (70-105) Hemoglobin A1c (4-6) % Total Protein (6.3-8.2) g/dL Albumin (3.9-5) g/dL Assessment and Plan Cultures: 04/28/2019 synovial fluid culture: In process A/P: 64-year-old male with diabetes mellitus, hypertension, prior CVA, gastroeso phageal reflux disease admitted with: 1) Left knee cellulitis: clinically, the surgical incision is healing well and there is no concern for an underlying prosthetic joint infection. Seems to be responding well to abx. Follow up synovial fluid cultures. Gram negative source is unlikely, Zosyn not needed. Continue IV Vancomycin. 2) Left TKA: incision well healed. No drainage. Orthopedics following. 3) DM-2: recommend tight glycemic control. Recs: Discontinue Zosyn Continue IV vancomycin, target trough between 10-20 g per mL Follow up synovial fluid cultures For discharge, unable to use PO linezolid due to interaction with Citalopram. Will try to get him approved for one dose of IV Dalvance (that way he can avoid a PICC line) Pancho Linton MD, FACP [facility] ([facility]) C: [phone] O: [phone] F: [phone]
[2019-04-28 15:34] LABS: Total Cells Counted 100 /mm3
[2019-04-28] MEDS: NACL 0.9% 1000 ML 1,000 ML IV SCH (16:42)
[2019-04-28] MEDS ORDERED: PRANDIN PO SCH (17:00)
[2019-04-28] MEDS: BABY ASPIRIN PO SCH (17:15)
[2019-04-28] MEDS: PRANDIN PO SCH (17:15)
[2019-04-28] MEDS ORDERED: LANTUS SUB-Q SCH (18:00)
[2019-04-28] MEDS ORDERED: ZESTRIL PO SCH (18:00)
[2019-04-28] MEDS ORDERED: NON-FORMULARY (Rosuvastatin Calcium [Crestor] 40 MG) PO SCH (22:00)
[2019-04-28] MEDS ORDERED: REPAGLINIDE 2 MG PO SCH (22:00)
[2019-04-28] MEDS ORDERED: LOVENOX SUB-Q SCH (22:00)
[2019-04-28] MEDS: ZESTRIL PO SCH (22:26)
[2019-04-29] MEDS: NACL 0.9% 1000 ML 1,000 ML IV SCH (08:25)
[2019-04-29] MEDS: FISH OIL PO SCH ×2 (10:56→21:42)
[2019-04-29] MEDS: THERAGRAN-M Tab PO SCH (10:56)
[2019-04-29] MEDS: NON-FORMULARY PO SCH ×2 (10:56→21:42)
[2019-04-29] MEDS: PROTONIX PO SCH (10:57)
[2019-04-29] MEDS: celeXA PO SCH (10:57)
[2019-04-29] MEDS: PLAVIX PO SCH (10:57)
[2019-04-29] MEDS: COREG PO SCH (10:57)
[2019-04-29] MEDS: PEPCID PO SCH ×2 (10:57→21:41)
--- NOTE | 2019-04-29 11:17 | Progress Note ---
Assessment and Plan Assessment and plan: Patient is a 64 yo man with a history of hypertension, IDDM type 2, Depression, 2 greenberg three years ago (placed on plavix with ASA), Vertigo, GERD and dyslipidemia who was a direct admit from Dr Meyer Orthpop[facility] office for Left knee redness x 3 days. He is status post Left TKA on March 19, 2019 at [facility]. Patient was doing well post op. Dr Meyer was concerned about cellulitis the Left knee. He wanted IV Zosyn and IV Vancomycin. -Left knee cellulitis: treat with IV abx, consulted ID, wound culture done with Dr. Villalobos -s/p Left TKA: Ortho is following, -HTN (hypertension): Cont antihypertensives -T2DM (type 2 diabetes mellitus): Cont Invokana and coverage -DVT prophylaxis; per Dr. Villalobos, ok to stop sq lovenox and continue ASA and plavix History Interval history: Patient was seen and examined. Follow-up on current diagnosis of left knee cellulitis. No overnight events reported to me. Patient denies any chest pain, shortness breath, nausea/vomiting or severe headaches. Imaging, nursing note, chart, labs and old chart reviewed. Discussed with patient. Hospitalist Physical - Physical exam Narrative exam: Gen: WDWN, NAD, Awake, Alert, Orientated x 3 HEENT: NCAT, EOMI, PERRL, OP Clear Neck: supple, no adenopathy, no thyromegaly, no JVD CVS/Heart: RRR, normal S1S2, pulses present bilaterally Chest/Lungs: CTA B, Symmetrical chest expansion, good air entry bilaterally GI/Abdomen: soft, NTND, good bowel sounds, no guarding or rebound /Bladder: no suprapubic tenderness, no CVA or paraspinal tenderness Extermity/Skin: left knee s/p surgery with red, warmth, tender erythematous MSK: FROM x 4 Neuro: CN 2-12 grossly intact, no new focal deficits Psych: calm - Constitutional Vitals: Temp Pulse Resp BP Pulse Ox 97.6 F 70 18 155/70 95 04/29/19 00:00 04/29/19 00:00 04/29/19 00:00 04/29/19 00:00 04/29/19 00:00 General appearance: Present: no acute distress, well-nourished Results - Labs CBC & Chem 7: 04/28/19 05:25 04/28/19 05:25 Labs: Laboratory Last Values WBC 5.4 K/mm3 (4.5-11.0) 04/28/19 05:25 RBC 4.65 M/mm3 (3.65-5.03) 04/28/19 05:25 Hgb 12.0 gm/dl (11.8-15.2) 04/28/19 05:25 Hct 37.2 % (35.5-45.6) 04/28/19 05:25 MCV 80 fl (84-94) L 04/28/19 05:25 MCH 26 pg (28-32) L 04/28/19 05:25 MCHC 32 % (32-34) 04/28/19 05:25 RDW 17.7 % (13.2-15.2) H 04/28/19 05:25 Plt Count 158 K/mm3 (140-440) 04/28/19 05:25 Lymph % (Auto) 27.7 % (13.4-35.0) 04/28/19 05:25 [place] % (Auto) 9.6 % (0.0-7.3) H 04/28/19 05:25 Eos % (Auto) 12.9 % (0.0-4.3) H 04/28/19 05:25 Baso % (Auto) 0.8 % (0.0-1.8) 04/28/19 05:25 Lymph # 1.5 K/mm3 (1.2-5.4) 04/28/19 05:25 [place] # 0.5 K/mm3 (0.0-0.8) 04/28/19 05:25 Eos # 0.7 K/mm3 (0.0-0.4) H 04/28/19 05:25 Baso # 0.0 K/mm3 (0.0-0.1) 04/28/19 05:25 Seg Neutrophils % 49.0 % (40.0-70.0) 04/28/19 05:25 Seg Neutrophils # 2.6 K/mm3 (1.8-7.7) 04/28/19 05:25 ESR 4 mm/Hr (0-20) 04/27/19 17:55 Sodium 139 mmol/L (137-145) 04/28/19 05:25 Potassium 4.4 mmol/L (3.6-5.0) 04/28/19 05:25 Chloride 101.9 mmol/L (98-107) 04/28/19 05:25 Carbon Dioxide 26 mmol/L (22-30) 04/28/19 05:25 16 mmol/L 04/28/19 05:25 BUN 14 mg/dL (9-20) 04/28/19 05:25 0.7 mg/dL (0.8-1.5) L 04/28/19 05:25 Estimated GFR > 60 ml/min 04/28/19 05:25 20 % 04/28/19 05:25 Glucose 112 mg/dL (75-100) H 04/28/19 05:25 POC Glucose 130 (70-105) H 04/28/19 20:56 6.3 % (4-6) H 04/27/19 Unknown Calcium 8.6 mg/dL (8.4-10.2) 04/28/19 05:25 0.50 mg/dL (0.1-1.2) 04/28/19 05:25 AST 11 units/L (5-40) 04/28/19 05:25 ALT 9 units/L (7-56) 04/28/19 05:25 71 units/L (35-129) 04/28/19 05:25 0.60 mg/dL (0.00-1.30) 04/27/19 17:55 6.1 g/dL (6.3-8.2) L 04/28/19 05:25 3.5 g/dL (3.9-5) L 04/28/19 05:25 1.3 % 04/28/19 05:25 TSH 1.770 mlU/mL (0.270-4.200) 04/27/19 17:55 Fluid Type Synovial 04/28/19 Unknown Fluid Color Red 04/28/19 Unknown Fluid Appearance Cloudy 04/28/19 Unknown Fluid WBC 100 /mm3 04/28/19 Unknown Fluid RBC 93476 /mm3 04/28/19 Unknown Fluid Seg Neutrophils 39.0 % 04/28/19 Unknown Fluid Lymphocytes 27.0 % 04/28/19 Unknown Fluid Reactive Lymphs Not Reportable 04/28/19 Unknown Fluid Monocytes 28.0 % 04/28/19 Unknown Fluid Eosinophils 6.0 % 04/28/19 Unknown Fluid Basophils Not Reportable 04/28/19 Unknown Active Medications - Current Medications Current Medications: Generic Name Dose Route Start Last Admin Trade Name Freq PRN Reason Stop Dose Admin Acetaminophen 650 mg 04/27/19 19:50 Tylenol PO Q4H PRN Pain MILD(1-3)/Fever >100.5/QUINTANILLA Aspirin 81 mg 04/28/19 18:00 04/28/19 17:15 Baby Aspirin PO 81 mg QPM ANA Administration Atorvastatin Calcium 80 mg 04/27/19 22:00 04/28/19 22:25 Lipitor PO 80 mg QHS ANA Administration Carvedilol 6.25 mg 04/28/19 10:00 04/29/19 10:57 Coreg PO 6.25 mg DAILY ANA Administration Citalopram Hydrobromide 40 mg 04/28/19 10:00 04/29/19 10:57 Celexa PO 40 mg QDAY ANA Administration Clopidogrel Bisulfate 75 mg 04/28/19 10:00 04/29/19 10:57 Plavix PO 75 mg QDAY ANA Administration Famotidine 20 mg 04/27/19 22:00 04/29/19 10:57 Pepcid PO 20 mg BID ANA Administration Fish Oil 1,000 mg 04/28/19 10:00 04/29/19 10:56 Fish Oil PO 1,000 mg BID ANA Administration Hydromorphone HCl 0.5 mg 04/27/19 15:16 04/27/19 23:08 Dilaudid IV 0.5 mg Q3H PRN Administration Pain , Severe (7-10) Sodium Chloride 1,000 mls @ 75 mls/hr 04/27/19 16:00 04/29/19 08:25 Nacl 0.9% 1000 Ml IV 75 mls/hr DIRECT ANA Administration Vancomycin HCl 1,750 mg/ 535 mls @ 333.333 mls/hr 04/28/19 12:00 04/28/19 23:46 Sodium Chloride IV 333.333 mls/hr Q12H ANA Administration Insulin Glargine 28 units 04/27/19 22:00 04/27/19 23:02 Lantus SUB-Q Not Given QHS ANA Lisinopril 5 mg 04/27/19 22:00 04/28/19 22:26 Zestril PO 5 mg QHS ANA Administration Meclizine HCl 25 mg 04/28/19 07:15 Antivert PO PRN PRN dizziness Miscellaneous Medication 1 each 04/28/19 22:00 04/29/19 10:56 Non-Formulary PO 1 each BID ANA Administration Multivitamins/Minerals 1 each 04/28/19 10:00 04/29/19 10:56 Theragran-M Tab PO 1 each QDAY ANA Administration Ondansetron HCl 4 mg 04/27/19 19:50 Zofran IV Q8H PRN Nausea And Vomiting Oxycodone/Acetaminophen 1 tab 04/27/19 19:50 04/28/19 22:26 Percocet 5/325 PO 1 tab Q6H PRN Administration Pain, Moderate (4-6) Pantoprazole Sodium 40 mg 04/28/19 10:00 04/29/19 10:57 Protonix PO 40 mg QDAY ANA Administration Pregabalin 25 mg/ Pregabalin 100 mg 04/27/19 22:00 04/28/19 22:18 75 mg PO 100 mg BID ANA Administration Repaglinide 2 mg 04/28/19 17:00 04/28/19 17:15 Prandin PO 2 mg DAILY@1700 ANA Administration Sodium Chloride 10 ml 04/27/19 22:00 04/28/19 09:35 Sodium Chloride Flush Syringe 10 Ml IV 10 ml BID ANA Administration Sodium Chloride 10 ml 04/27/19 19:50 Sodium Chloride Flush Syringe 10 Ml IV PRN PRN LINE FLUSH
--- NOTE | 2019-04-29 11:48 | Progress Note ---
Subjective Date of service: 04/29/19 Interval history: patient doing well. Redness much better than yesterday. Hyper pigmentation seen. mild tenderness present in proximal medial leg area. knee ROM painfree. No increase in effusion in the knee joint. Calf soft NT nvi Joint fluid Cell count with diff no signs of acute inflemmation. CX no growth in 24 hrs. Continue ID recommendation elevation of leg ice pacs Objective Vital signs: Vital Signs - 12hr 04/29/19 00:00 Temperature 97.6 F Pulse Rate 70 Respiratory 18 Rate Blood Pressure 155/70 O2 Sat by Pulse 95 Oximetry - Labs CBC & BMP: 04/28/19 05:25 04/28/19 05:25 Labs: Abnormal lab results 04/28/19 Range/Units 20:56 POC Glucose 130 H (70-105)
[2019-04-29] MEDS: VANCOMYCIN 1,750 MG in NACL 0.9% 500 ML 500 ML IV SCH (12:25)
[2019-04-29] MEDS: PREGABALIN 25 MG, PREGABALIN 75 MG PO SCH (13:25)
--- NOTE | 2019-04-29 14:07 | Progress Note ---
Assessment and Plan Cultures: 04/28/2019 synovial fluid culture: no growth thus far A/P: 64-year-old male with diabetes mellitus, hypertension, prior CVA, gastroesophageal reflux disease admitted with: 1) Left knee cellulitis: clinically, the surgical incision is healing well and there is no concern for an underlying prosthetic joint infection. Seems to be responding well to abx. Follow up synovial fluid cultures, negative thus far. Synovial fluid analysis also not concerning for PJI. Gram negative source is unlikely, Zosyn not needed. Continue IV Vancomycin. 2) Left TKA: incision well healed. No drainage. Orthopedics following. 3) DM-2: recommend tight glycemic control. Recs: Continue IV vancomycin, target trough between 10-20 g per mL For discharge, will try to get him approved for one dose of IV Dalvance (referral sent, awaiting insurance approval) Pancho Linton MD, FACP [facility] ([facility]) C: [phone] O: [phone] F: [phone] Subjective Date of service: 04/29/19 Interval history: No fever. Feeling better. Redness on left knee continues to improve. Tolerating abx well so far. no rash, no diarrhea. Objective - Exam Narrative Exam: Physical Exam: Constitutional: Alert, cooperative. No acute distress Head, Ears, Nose: Normocephalic, atraumatic. External ears, nose normal Eyes: Conjunctivae/corneas clear. No icterus. No ptosis. Neck: Supple, no meningeal signs Oral: dentition fair, no thrush Cardiovascular: S1, S2 normal. Respiratory: Good air entry, clear to auscultation bilaterally GI: Soft, non-tender; bowel sounds normal. No peritoneal signs Musculoskeletal: The surgical incision is clean, dry and intact with no open areas or drainage. Area of erythema and tenderness medial to the distal part of the knee incision is present, but improving. No pedal edema, no cyanosis. Skin: No rash or abscess Hem/Lymphatic: No palpable cervical or supraclavicular nodes. No lymphangitis Psych: Mood ok. Affect normal Neurological: Awake, alert, oriented. No gross abnormality - Constitutional Vitals: Vital Signs Temp Pulse Resp BP Pulse Ox 97.6 F 70 18 155/70 95 04/29/19 00:00 04/29/19 00:00 04/29/19 00:00 04/29/19 00:00 04/29/19 00:00 Temperature -Last 24 Hours Temperature 97.6 F Temperature 97.9 F Temperature 97.6 F - Labs CBC & Chem 7: 04/28/19 05:25 04/28/19 05:25 Labs: Abnormal lab results 04/28/19 Range/Units 20:56 POC Glucose 130 H (70-105)
[2019-04-29] MEDS: BABY ASPIRIN PO SCH (17:46)
[2019-04-29] MEDS: PRANDIN PO SCH (17:46)
[2019-04-29] MEDS: ZESTRIL PO SCH (20:04)
[2019-04-29] MEDS: PERCOCET 5/325 PO PRN (21:48)
[2019-04-29] MEDS: LANTUS SUB-Q SCH (21:49)
[2019-04-29] MEDS: SODIUM CHLORIDE FLUSH SYRINGE 10 ML IV SCH (22:11)
[2019-04-30] MEDS: VANCOMYCIN 1,750 MG in NACL 0.9% 500 ML 500 ML IV SCH ×2 (00:48→13:05)
[2019-04-30] MEDS: NACL 0.9% 1000 ML 1,000 ML IV SCH (00:49)
[2019-04-30] MEDS: SODIUM CHLORIDE FLUSH SYRINGE 10 ML IV SCH (00:53)
--- NOTE | 2019-04-30 07:19 | Progress Note ---
Assessment and Plan Assessment and plan: Patient is a 64 yo man with a history of hypertension, IDDM type 2, Depression, 2 greenberg three years ago (placed on plavix with ASA), Vertigo, GERD and dyslipidemia who was a direct admit from Dr Meyer [facility] office for Left knee redness x 3 days. He is status post Left TKA on March 19, 2019 at [facility]. Patient was doing well post op. Dr Meyer was concerned about cellulitis the Left knee. He wanted IV Zosyn and IV Vancomycin. -Left knee cellulitis: treat with IV abx, consulted ID, wound culture done with Dr. Villalobos -s/p Left TKA: Ortho is following, -HTN (hypertension): Cont antihypertensives -T2DM (type 2 diabetes mellitus): Cont Invokana and coverage -DVT prophylaxis; per Dr. Villalobos, ok to stop sq lovenox and continue ASA and plavix History Interval history: Patient was seen and examined. Follow-up on current diagnosis of left knee cellulitis. No overnight events reported to me. Patient denies any chest pain, shortness breath, nausea/vomiting or severe headaches. Imaging, nursing note, chart, labs and old chart reviewed. Discussed with patient. Hospitalist Physical - Physical exam Narrative exam: Gen: WDWN, NAD, Awake, Alert, Orientated x 3 HEENT: NCAT, EOMI, PERRL, OP Clear Neck: supple, no adenopathy, no thyromegaly, no JVD CVS/Heart: RRR, normal S1S2, pulses present bilaterally Chest/Lungs: CTA B, Symmetrical chest expansion, good air entry bilaterally GI/Abdomen: soft, NTND, good bowel sounds, no guarding or rebound /Bladder: no suprapubic tenderness, no CVA or paraspinal tenderness Extermity/Skin: left knee s/p surgery with red, warmth, tender erythematous MSK: FROM x 4 Neuro: CN 2-12 grossly intact, no new focal deficits Psych: calm - Constitutional Vitals: Temp Pulse Resp BP Pulse Ox 97.3 F L 66 18 160/72 94 04/30/19 04:48 04/30/19 04:48 04/30/19 04:48 04/30/19 04:48 04/30/19 04:48 General appearance: Present: no acute distress, well-nourished Results - Labs CBC & Chem 7: 04/28/19 05:25 04/28/19 05:25 Labs: Laboratory Last Values WBC 5.4 K/mm3 (4.5-11.0) 04/28/19 05:25 RBC 4.65 M/mm3 (3.65-5.03) 04/28/19 05:25 Hgb 12.0 gm/dl (11.8-15.2) 04/28/19 05:25 Hct 37.2 % (35.5-45.6) 04/28/19 05:25 MCV 80 fl (84-94) L 04/28/19 05:25 MCH 26 pg (28-32) L 04/28/19 05:25 MCHC 32 % (32-34) 04/28/19 05:25 RDW 17.7 % (13.2-15.2) H 04/28/19 05:25 Plt Count 158 K/mm3 (140-440) 04/28/19 05:25 Lymph % (Auto) 27.7 % (13.4-35.0) 04/28/19 05:25 Mccracken % (Auto) 9.6 % (0.0-7.3) H 04/28/19 05:25 Eos % (Auto) 12.9 % (0.0-4.3) H 04/28/19 05:25 Baso % (Auto) 0.8 % (0.0-1.8) 04/28/19 05:25 Lymph # 1.5 K/mm3 (1.2-5.4) 04/28/19 05:25 Mccracken # 0.5 K/mm3 (0.0-0.8) 04/28/19 05:25 Eos # 0.7 K/mm3 (0.0-0.4) H 04/28/19 05:25 Baso # 0.0 K/mm3 (0.0-0.1) 04/28/19 05:25 Seg Neutrophils % 49.0 % (40.0-70.0) 04/28/19 05:25 Seg Neutrophils # 2.6 K/mm3 (1.8-7.7) 04/28/19 05:25 ESR 4 mm/Hr (0-20) 04/27/19 17:55 Sodium 139 mmol/L (137-145) 04/28/19 05:25 Potassium 4.4 mmol/L (3.6-5.0) 04/28/19 05:25 Chloride 101.9 mmol/L (98-107) 04/28/19 05:25 Carbon Dioxide 26 mmol/L (22-30) 04/28/19 05:25 16 mmol/L 04/28/19 05:25 BUN 14 mg/dL (9-20) 04/28/19 05:25 0.7 mg/dL (0.8-1.5) L 04/28/19 05:25 Estimated GFR > 60 ml/min 04/28/19 05:25 20 % 04/28/19 05:25 Glucose 112 mg/dL (75-100) H 04/28/19 05:25 POC Glucose 110 (70-105) H 04/29/19 20:31 6.3 % (4-6) H 04/27/19 Unknown Calcium 8.6 mg/dL (8.4-10.2) 04/28/19 05:25 0.50 mg/dL (0.1-1.2) 04/28/19 05:25 AST 11 units/L (5-40) 04/28/19 05:25 ALT 9 units/L (7-56) 04/28/19 05:25 71 units/L (35-129) 04/28/19 05:25 0.60 mg/dL (0.00-1.30) 04/27/19 17:55 6.1 g/dL (6.3-8.2) L 04/28/19 05:25 3.5 g/dL (3.9-5) L 04/28/19 05:25 1.3 % 04/28/19 05:25 TSH 1.770 mlU/mL (0.270-4.200) 04/27/19 17:55 Fluid Type Synovial 04/28/19 Unknown Fluid Color Red 04/28/19 Unknown Fluid Appearance Cloudy 04/28/19 Unknown Fluid WBC 100 /mm3 04/28/19 Unknown Fluid RBC 95111 /mm3 04/28/19 Unknown Fluid Seg Neutrophils 39.0 % 04/28/19 Unknown Fluid Lymphocytes 27.0 % 04/28/19 Unknown Fluid Reactive Lymphs Not Reportable 04/28/19 Unknown Fluid Monocytes 28.0 % 04/28/19 Unknown Fluid Eosinophils 6.0 % 04/28/19 Unknown Fluid Basophils Not Reportable 04/28/19 Unknown Vancomycin Trough 16.2 ug/mL (5.0-20.0) 04/29/19 23:43 Active Medications - Current Medications Current Medications: Generic Name Dose Route Start Last Admin Trade Name Freq PRN Reason Stop Dose Admin Acetaminophen 650 mg 04/27/19 19:50 Tylenol PO Q4H PRN Pain MILD(1-3)/Fever >100.5/QUINTANILLA Aspirin 81 mg 04/28/19 18:00 04/29/19 17:46 Baby Aspirin PO 81 mg QPM ANA Administration Atorvastatin Calcium 80 mg 04/27/19 22:00 04/29/19 21:41 Lipitor PO 80 mg QHS ANA Administration Carvedilol 6.25 mg 04/28/19 10:00 04/29/19 10:57 Coreg PO 6.25 mg DAILY ANA Administration Citalopram Hydrobromide 40 mg 04/28/19 10:00 04/29/19 10:57 Celexa PO 40 mg QDAY ANA Administration Clopidogrel Bisulfate 75 mg 04/28/19 10:00 04/29/19 10:57 Plavix PO 75 mg QDAY ANA Administration Famotidine 20 mg 04/27/19 22:00 04/29/19 21:41 Pepcid PO 20 mg BID ANA Administration Fish Oil 1,000 mg 04/28/19 10:00 04/29/19 21:42 Fish Oil PO 1,000 mg BID ANA Administration Hydromorphone HCl 0.5 mg 04/27/19 15:16 04/27/19 23:08 Dilaudid IV 0.5 mg Q3H PRN Administration Pain , Severe (7-10) Sodium Chloride 1,000 mls @ 75 mls/hr 04/27/19 16:00 04/30/19 00:49 Nacl 0.9% 1000 Ml IV 75 mls/hr DIRECT ANA Administration Vancomycin HCl 1,750 mg/ 535 mls @ 333.333 mls/hr 04/28/19 12:00 04/30/19 00:48 Sodium Chloride IV 333.333 mls/hr Q12H ANA Administration Insulin Glargine 28 units 04/27/19 22:00 04/29/19 21:49 Lantus SUB-Q Not Given QHS ANA Lisinopril 5 mg 04/27/19 22:00 04/29/19 20:04 Zestril PO 5 mg QHS ANA Administration Meclizine HCl 25 mg 04/28/19 07:15 Antivert PO PRN PRN dizziness Miscellaneous Medication 1 each 04/28/19 22:00 04/29/19 21:42 Non-Formulary PO 1 each BID ANA Administration Multivitamins/Minerals 1 each 04/28/19 10:00 04/29/19 10:56 Theragran-M Tab PO 1 each QDAY ANA Administration Ondansetron HCl 4 mg 04/27/19 19:50 Zofran IV Q8H PRN Nausea And Vomiting Oxycodone/Acetaminophen 1 tab 04/27/19 19:50 04/29/19 21:48 Percocet 5/325 PO 1 tab Q6H PRN Administration Pain, Moderate (4-6) Pantoprazole Sodium 40 mg 04/28/19 10:00 04/29/19 10:57 Protonix PO 40 mg QDAY ANA Administration Pregabalin 25 mg/ Pregabalin 100 mg 04/27/19 22:00 04/29/19 13:25 75 mg PO 100 mg BID ANA Administration Repaglinide 2 mg 04/28/19 17:00 04/29/19 17:46 Prandin PO 2 mg DAILY@1700 ANA Administration Sodium Chloride 10 ml 04/27/19 22:00 04/30/19 00:53 Sodium Chloride Flush Syringe 10 Ml IV 10 ml BID ANA Administration Sodium Chloride 10 ml 04/27/19 19:50 Sodium Chloride Flush Syringe 10 Ml IV PRN PRN LINE FLUSH
[2019-04-30] MEDS: THERAGRAN-M Tab PO SCH (10:24)
[2019-04-30] MEDS: PEPCID PO SCH (10:24)
[2019-04-30] MEDS: celeXA PO SCH (10:24)
[2019-04-30] MEDS: FISH OIL PO SCH (10:24)
[2019-04-30] MEDS: COREG PO SCH (10:24)
[2019-04-30] MEDS: PLAVIX PO SCH (10:24)
[2019-04-30] MEDS: PROTONIX PO SCH (10:24)
[2019-04-30] MEDS: NON-FORMULARY PO SCH (10:25)
[2019-04-30] MEDS ORDERED: PREGABALIN PO SCH ×2 (11:00)
--- NOTE | 2019-04-30 12:27 | Progress Note ---
Assessment and Plan Cultures: 04/28/2019 synovial fluid culture: no growth thus far A/P: 64-year-old male with diabetes mellitus, hypertension, prior CVA, gastroesophageal reflux disease admitted with: 1) Left knee cellulitis: clinically, the surgical incision is healing well and there is no concern for an underlying prosthetic joint infection. Seems to be responding well to abx. Follow up synovial fluid cultures, negative thus far. Synovial fluid analysis also not concerning for PJI. Gram negative source is unlikely, Zosyn not needed. Continue IV Vancomycin. 2) Left TKA: incision well healed. No drainage. Orthopedics following. 3) DM-2: recommend tight glycemic control. Recs: Patient states he cannot afford the cost for IV Dalvance, hasn't met his deductible. Wants a cheaper alternative. Hence, prescribed PO Keflex 500 mg QID + PO Doxycycline 100 mg BID x 7 days ID clinic follow up in 7 days Prescriptions printed and given to RN. Ok to discharge from ID standpoint. Pancho Linton MD, FACP [facility] C: [phone] O: [phone] F: [phone] Subjective Date of service: 04/30/19 Interval history: No fever. Pain and redness continues to improve. No new complaints. Objective - Exam Narrative Exam: Physical Exam: Constitutional: Alert, cooperative. No acute distress Head, Ears, Nose: Normocephalic, atraumatic. External ears, nose normal Eyes: Conjunctivae/corneas clear. No icterus. No ptosis. Neck: Supple, no meningeal signs Oral: dentition fair, no thrush Cardiovascular: S1, S2 normal. Respiratory: Good air entry, clear to auscultation bilaterally GI: Soft, non-tender; bowel sounds normal. No peritoneal signs Musculoskeletal: The surgical incision remains clean, dry and intact with no open areas or drainage. erythema and tenderness almost resolved. No pedal edema, no cyanosis. Skin: No rash or abscess Hem/Lymphatic: No palpable cervical or supraclavicular nodes. No lymphangitis Psych: Mood ok. Affect normal Neurological: Awake, alert, oriented. No gross abnormality - Constitutional Vitals: Vital Signs Temp Pulse Resp BP Pulse Ox 97.5 F L 66 20 171/80 96 04/30/19 07:23 09/16/19 07:23 04/30/19 07:23 04/30/19 07:23 04/30/19 07:23 Temperature -Last 24 Hours Temperature 97.5 F Temperature 97.3 F Temperature 97.5 F Temperature 97.7 F - Labs CBC & Chem 7: 04/28/19 05:25 04/28/19 05:25 Labs: Abnormal lab results 04/29/19 Range/Units 20:31 POC Glucose 110 H (70-105)
--- NOTE | 2019-04-30 13:22 | Discharge Summary ---
Providers - Providers Date of Admission: 04/27/19 15:52 Date of discharge: 04/30/19 Attending physician: CASSIE JENKINS 04/27/19 19:50 Consult to Physician [CONS] Routine Comment: Consulting Provider: ДМИТРИЙ BARONE Physician Instructions: Reason For Exam: L knee cellulitis 04/28/19 11:59 Consult to Physician [CONS] Routine Comment: Consulting Provider: ALIREZA AGUILERA Physician Instructions: Reason For Exam: Abx recommendation and management Primary care physician: FANY ROCHA Hospitalization Condition: Stable Hospital course: Patient is a 64 yo man with a history of hypertension, IDDM type 2, Depression, 2 greenberg three years ago (placed on plavix with ASA), Vertigo, GERD and dyslipidemia who was a direct admit from Dr Meyer [facility] office for Left knee redness x 3 days. He is status post Left TKA on March 19, 2019 at [facility]. Patient was doing well post op. Dr Meyer was concerned about cellulitis the Left knee. He wanted IV Zosyn and IV Vancomycin. -Left knee cellulitis: treat with IV abx, consulted ID, wound culture done with Dr. Barone -s/p Left TKA: Ortho is following, -HTN (hypertension): Cont antihypertensives -T2DM (type 2 diabetes mellitus): Cont Invokana and coverage -DVT prophylaxis; per Dr. Barone, ok to stop sq lovenox and continue ASA and plavix per ID recommendations: Patient states he cannot afford the cost for IV Dalvance, hasn't met his deductible. Wants a cheaper alternative. Hence, prescribed PO Keflex 500 mg QID + PO Doxycycline 100 mg BID x 7 days ID clinic follow up in 7 days Prescriptions printed and given to RN. Ok to discharge from ID standpoint. Disposition: DC-01 TO HOME OR SELFCARE Time spent for discharge: 32 minutes Core Measure Documentation - Palliative Care Palliative Care/ Comfort Measures: Not Applicable - Core Measures Any of the following diagnoses?: none - VTE Discharge Requirements Deep Vein Thrombosis/Pulmonary Embolism Present on Admission: No Has pt received <5 days of overlap therapy or INR<2.0: No Anticoagulant overlap therapy prescribed at discharge: No Contraindication No Overlap Therapy order at DC: Not Indicated Exam - Physical Exam Narrative exam: Gen: WDWN, NAD, Awake, Alert, Orientated x 3 HEENT: NCAT, EOMI, PERRL, OP Clear Neck: supple, no adenopathy, no thyromegaly, no JVD CVS/Heart: RRR, normal S1S2, pulses present bilaterally Chest/Lungs: CTA B, Symmetrical chest expansion, good air entry bilaterally GI/Abdomen: soft, NTND, good bowel sounds, no guarding or rebound /Bladder: no suprapubic tenderness, no CVA or paraspinal tenderness Extermity/Skin: left knee s/p surgery with red, warmth, tender erythematous MSK: FROM x 4 Neuro: CN 2-12 grossly intact, no new focal deficits Psych: calm - Constitutional Vitals: Temp Pulse Resp BP Pulse Ox 97.5 F L 66 20 171/80 96 04/30/19 07:23 04/30/19 07:23 04/30/19 07:23 04/30/19 07:23 04/30/19 07:23 Plan Activity: other (no strenous activity until cleared by Ortho doctor) Diet: low salt, diabetic Special Instructions: record blood sugar diary (three times a day) Follow up with: FANY ROCHA MD [Primary Care Provider] - 7 Days ДМИТРИЙ BARONE MD [Staff Physician] - 7 Days Prescriptions: Doxycycline Monohydrate [Doxycycline Monohydrate CAP] 100 mg PO BID 7 Days capsule cephALEXin [Keflex] 500 mg PO Q6HR 7 Days capsule
--- NOTE | 2019-04-30 14:38 | Progress Note ---
Subjective Date of service: 04/30/19 Interval history: patient doing well. redness better. MIld soreness still present ID on board and decides for Keflex and doxy. Knee movt painfree and benign. Patient follow up in 1 week. Joint fluid cx negative so far. Objective Vital signs: Vital Signs - 12hr 04/30/19 04/30/19 04:48 07:23 Temperature 97.3 F L 97.5 F L Pulse Rate 66 66 Respiratory 18 20 Rate Blood Pressure 160/72 171/80 O2 Sat by Pulse 94 96 Oximetry - Labs CBC & BMP: 04/28/19 05:25 04/28/19 05:25 Labs: Abnormal lab results 04/29/19 Range/Units 20:31 POC Glucose 110 H (70-105)
[2019-04-30 16:21] VITALS: BP 156/75
== END 2019-04-30 16:45 | disposition home or self-care (01) | DRG 863 ==
LOC: 3A 15:05 → UNDOADMIN 15:05 → 3B-SURG 15:52
PROVIDERS: ADMIT Internal Medicine; ATTEND Internal Medicine
DX: T81.41XA Infection following a procedure, superficial incisional surgical site, initial encounter (principal); L03.116 Cellulitis of left lower limb; Y92.098 Other place in other non-institutional residence as the place of occurrence of the external cause; I10 Essential (primary) hypertension; E11.9 Type 2 diabetes mellitus without complications; Y83.8 Other surgical procedures as the cause of abnormal reaction of the patient, or of later complication, without mention of misadventure at the time of the procedure; Z96.652 Presence of left artificial knee joint; K21.9 Gastro-esophageal reflux disease without esophagitis; Z82.49 Family history of ischemic heart disease and other diseases of the circulatory system; Z79.82 Long term (current) use of aspirin; Z79.4 Long term (current) use of insulin; Z86.73 Personal history of transient ischemic attack (TIA), and cerebral infarction without residual deficits
CPT/HCPCS: 36415; 80053; 80202; 82962; 83036; 84443; 85025; 85652; 86140; 87102; 87116; 87220; 88112; 88312; 89051; G0378; A9270-GY; J1170; J1815; J2543; J3370; J7030; J7040